=== PATIENT | male | born 1995 | race Caucasian/White ===

== ENCOUNTER 2019-09-23 07:04 | Emergency (ER) | payer MEDICAID ==
[~2019-09-23] VITALS: Ht 175.3 cm; Wt 75.0 kg
[2019-09-23] MEDS ORDERED: ketorolac tromethamine 15mg/ml inj. IV ONE (07:45)
[2019-09-23] MEDS ORDERED: normal saline 1000ML IV soln IVB ONE (07:45)
[2019-09-23 08:17] VITALS: BP 114/89
== END 2019-09-23 10:41 | disposition home or self-care (01) ==
LOC: ER 07:05
DX: B34.9 Viral infection, unspecified (principal); R50.9 Fever, unspecified; R51 Headache; R53.1 Weakness; F12.90 Cannabis use, unspecified, uncomplicated; F17.200 Nicotine dependence, unspecified, uncomplicated; Z59.0 Homelessness
CPT/HCPCS: 87502; 87503; 96374; 99283; J1885; J7030